=== PATIENT | female | born 1960 | race Caucasian/White ===

== ENCOUNTER 2021-01-22 22:22 | Emergency (ER) | payer BC ==
[2021-01-22] MEDS ORDERED: Ondansetron 4 MG Tab.DIS PO ONE (22:23)
[2021-01-22] MEDS ORDERED: Acetaminophen/HYDROcodone 325-5 MG Tab PO ONE (22:23)
[2021-01-22] MEDS ORDERED: Lactated Ringers 1,000 ML IV ONE (22:40)
[2021-01-22] MEDS ORDERED: HYDROmorphone 2 MG/ML SDV IVPUSH ONE (22:40)
[2021-01-22] MEDS ORDERED: Ondansetron 4 MG/2 ML SDV IVPUSH ONE (22:41)
--- NOTE | 2021-01-22 22:47 | EDM.PDOC ---
ED HPI GENERAL MEDICAL PROBLEM - General Chief Complaint: Abdominal Pain Stated Complaint: STOMACH PAIN Time Seen by Provider: 01/22/21 22:35 Source of Information: Reports: Patient, Old Records History Limitations: Reports: No Limitations - History of Present Illness INITIAL COMMENTS - FREE TEXT/NARRATIVE: 60 yo female presents with mainly RUQ abdominal pain. She last ate a summer sausage sandwich and potato salad at lunch time. She noticed anorexia at 4 pm and then a pressure under her ribs bilaterally, L > R starting at 7 pm. Has since then had nausea and vomiting. No hematemesis. No fever. No pHx of any abdominal surgeries. Onset: Today, Gradual Onset Date: 01/22/21 Duration: Hour(s):, Getting Worse Location: Reports: Abdomen Quality: Reports: Pressure Severity: Moderate Improves with: Reports: None Worsens with: Reports: Other (unsure) Context: Reports: Other (See HPI) Associated Symptoms: Reports: Nausea/Vomiting. 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: Other (see below) (none) Upper abdominal radiating across into flank region Pain Score (Numeric/FACES): 9 - Related Data Allergies Allergy/AdvReac Type Severity Reaction Status Date / Time No Known Allergies Allergy Verified 01/22/21 22:45 Home Meds: Home Meds Hydrocodone/Acetaminophen [Hydrocodon-Acetaminophen 5-325] 1 - 2 each PO QID PRN #16 tablet 01/22/21 [Rx] cephALEXin [Cephalexin] 500 mg PO QID #20 tablet 01/22/21 [Rx] ED ROS GENERAL - Review of Systems Review Of Systems: See Below Constitutional: Reports: No Symptoms HEENT: Reports: No Symptoms Respiratory: Reports: No Symptoms Cardiovascular: Reports: No Symptoms GI/Abdominal: Reports: Abdominal Pain, Anorexia, Nausea, Vomiting. Denies: Black Stool, Bloody Stool, Constipation, Diarrhea, Hematemesis, Hematochezia, Melena : Reports: No Symptoms Musculoskeletal: Reports: No Symptoms Skin: Reports: No Symptoms Neurological: Reports: No Symptoms ED EXAM, GI/ABD - Physical Exam Exam: See Below Exam Limited By: No Limitations General Appearance: Alert, WD/WN, No Apparent Distress Eyes: Bilateral: Normal Appearance Ears: Normal External Exam, Normal Canal, Hearing Grossly Normal Nose: Normal Inspection, No Blood Throat/Mouth: Normal Inspection, Normal Lips, Normal Oropharynx, Normal Voice, No Airway Compromise Head: Atraumatic, Normocephalic Neck: Normal Inspection Respiratory/Chest: No Respiratory Distress, Lungs Clear, Normal Breath Sounds, No Accessory Muscle Use Cardiovascular: Regular Rate, Rhythm, No Edema GI/Abdominal Exam: Normal Bowel Sounds, Soft, No Distention, Tender (mild increase in tenderness with palpation to the RUQ). No: Distended Back Exam: No: CVA Tenderness (R), CVA Tenderness (L) Extremities: Normal Inspection, Normal Range of Motion, Non-Tender, No Pedal Edema Neurological: Alert, Oriented, CN II-XII Intact, Normal Cognition, No Motor/Sensory Deficits Psychiatric: Normal Affect, Normal Mood Skin Exam: Warm, Dry, Intact, Normal Color, No Rash Course - Vital Signs Last Recorded V/S: Last Vital Signs Temp 36.6 C 01/22/21 22:40 Pulse 70 01/22/21 22:40 Resp 20 01/22/21 22:40 BP 144/83 H 01/22/21 22:40 Pulse Ox 100 01/22/21 22:40 - Orders/Labs/Meds Orders: Active Orders 24 hr Category Date Time Status CULTURE URINE [RM] Stat Lab 01/22/21 23:24 Ordered Lactated Ringers [Ringers, Lactated] 1,000 ml Med 01/22/21 22:40 Active IV BOLUS cefTRIAXone [Rocephin] 1 gm Med 01/22/21 23:32 Ordered Sodium Chloride 0.9% [Normal Saline] 50 ml IV ONETIME Medication Orders Lactated Ringer's (Ringers, Lactated) 1,000 mls @ 1,000 mls/hr IV BOLUS ONE Stop: 01/22/21 23:39 Labs: Laboratory Tests 01/22/21 01/22/21 01/22/21 Range/Units 22:45 22:50 22:50 WBC 11.6 H (3.0-10.3) x10-3/uL RBC 4.93 (3.60-5.20) x10(6)uL Hgb 10.2 L (11.4-15.5) g/dL Hct 33.3 L (34.2-48.2) % MCV 67.5 L (76.7-100.5) fL MCH 20.7 L (23.9-33.9) pg MCHC 30.6 L (31.9-34.8) g/dL RDW 17.5 H (12.3-16.5) % Plt Count 271 (151-488) x10(3)uL Sodium 138 (135-145) mmol/L Potassium 3.9 (3.5-5.3) mmol/L Chloride 103 (100-110) mmol/L Carbon Dioxide 23 (21-32) mmol/L BUN 13 (7-18) mg/dL Creatinine 1.1 H (0.55-1.02) mg/dL Est Cr Clr Drug Dosing 47.55 mL/min Estimated GFR (MDRD) 51 L (>60) BUN/Creatinine Ratio 11.8 (9-20) Glucose 135 H (80-116) mg/dL Calcium 8.0 L (8.6-10.2) mg/dL Total Bilirubin 0.2 (0.1-1.3) mg/dL AST 19 (5-25) IU/L ALT 35 (12-36) U/L Alkaline Phosphatase 93 (56-112) IU/L C-Reactive Protein (0.5-0.9) mg/dL Total Protein 7.8 (6.0-8.0) g/dL Albumin 3.8 (3.5-5.2) g/dL Globulin 4.0 g/dL Albumin/Globulin Ratio 1.0 Urine Color Yellow (YELLOW) Urine Appearance Cloudy (CLEAR) Urine pH 6.0 (5.0-6.5) Ur Specific [place] 1.020 (1.010-1.025) Urine Protein Trace (NEGATIVE) mg/dL Urine Glucose (UA) Normal (NORMAL) mg/dL Urine Ketones Negative (NEGATIVE) mg/dL Urine Occult Blood Moderate H (NEGATIVE) Urine Nitrite Negative (NEGATIVE) Urine Bilirubin Negative (NEGATIVE) Urine Urobilinogen Normal (NEGATIVE) mg/dL Ur Leukocyte Esterase Large H (NEGATIVE) Urine RBC 5-10 H (0-5) Urine WBC 40-50 H (0-5) Ur Squamous Epith Cells Moderate H (NS,R,O) Urine Bacteria Moderate H (NS) Urine Mucus Moderate H (NS) 01/22/21 Range/Units 22:50 WBC (3.0-10.3) x10-3/uL RBC (3.60-5.20) x10(6)uL Hgb (11.4-15.5) g/dL Hct (34.2-48.2) % MCV (76.7-100.5) fL MCH (23.9-33.9) pg MCHC (31.9-34.8) g/dL RDW (12.3-16.5) % Plt Count (151-488) x10(3)uL Sodium (135-145) mmol/L Potassium (3.5-5.3) mmol/L Chloride (100-110) mmol/L Carbon Dioxide (21-32) mmol/L BUN (7-18) mg/dL Creatinine (0.55-1.02) mg/dL Est Cr Clr Drug Dosing mL/min Estimated GFR (MDRD) (>60) BUN/Creatinine Ratio (9-20) Glucose (80-116) mg/dL Calcium (8.6-10.2) mg/dL Total Bilirubin (0.1-1.3) mg/dL AST (5-25) IU/L ALT (12-36) U/L Alkaline Phosphatase (56-112) IU/L C-Reactive Protein 2.6 H* (0.5-0.9) mg/dL Total Protein (6.0-8.0) g/dL Albumin (3.5-5.2) g/dL Globulin g/dL Albumin/Globulin Ratio Urine Color (YELLOW) Urine Appearance (CLEAR) Urine pH (5.0-6.5) Ur Specific [place] (1.010-1.025) Urine Protein (NEGATIVE) mg/dL Urine Glucose (UA) (NORMAL) mg/dL Urine Ketones (NEGATIVE) mg/dL Urine Occult Blood (NEGATIVE) Urine Nitrite (NEGATIVE) Urine Bilirubin (NEGATIVE) Urine Urobilinogen (NEGATIVE) mg/dL Ur Leukocyte Esterase (NEGATIVE) Urine RBC (0-5) Urine WBC (0-5) Ur Squamous Epith Cells (NS,R,O) Urine Bacteria (NS) Urine Mucus (NS) Meds: Medications Generic Name Dose Route Start Last Admin Trade Name Freq PRN Reason Stop Dose Admin Lactated Ringer's 1,000 mls @ 1,000 mls/hr 01/22/21 22:40 Ringers, Lactated IV 01/22/21 23:39 BOLUS ONE Discontinued Medications Generic Name Dose Route Start Last Admin Trade Name Freq PRN Reason Stop Dose Admin Hydromorphone HCl 0.5 mg 01/22/21 22:40 Hydromorphone 2 Mg/Ml Sdv IVPUSH 01/22/21 22:41 ONETIME ONE Ondansetron HCl 4 mg 01/22/21 22:41 Ondansetron 4 Mg/2 Ml Sdv IVPUSH 01/22/21 22:42 ONETIME ONE Departure - Departure Time of Disposition: 23:55 Disposition: Home, Self-Care 01 Condition: Fair Clinical Impression: Microcytic anemia, RUQ abdominal pain UTI (urinary tract infection) Qualifiers: Urinary tract infection type: site unspecified Hematuria presence: without hematuria Qualified Code(s): N39.0 - Urinary tract infection, site not specified - Discharge Information *PRESCRIPTION DRUG MONITORING PROGRAM REVIEWED*: Not Applicable *COPY OF PRESCRIPTION DRUG MONITORING REPORT IN PATIENT MERT: Not Applicable Prescriptions: cephALEXin [Cephalexin] 500 mg PO QID #20 tablet Hydrocodone/Acetaminophen [Hydrocodon-Acetaminophen 5-325] 1 - 2 each PO QID PRN #16 tablet PRN Reason: Pain Forms: ED Department Discharge Additional Instructions: Take the cephalexin every 8 hrs starting at bedtime tomorrow night. Use Zofran every 6-8 hrs as needed for nausea control. Take [place] 1-2 every 6 hrs as needed for pain relief. Your labs today suggest a urinary tract infection. A culture was set up that will be available in about 2-3 days. F/U on Fri or morning to your clinic for recheck. If you get a lot worse in the interim return here. Your labs today also suggest you may have a mild case of iron deficiency anemia. Your provider may want to put you on iron and possibly test your stools to make sure you aren't losing blood that way. Limit your diet to clear liquids until you are feeling better. Sepsis Event Note (ED) - Focused Exam Vital Signs: Vital Signs Temp Pulse Resp BP Pulse Ox 01/22/21 22:40 36.6 C 70 20 144/83 H 100 - My Orders Last 24 Hours: My Active Orders 01/22/21 22:40 Lactated Ringers [Ringers, Lactated] 1,000 ml IV BOLUS 01/22/21 23:24 CULTURE URINE [RM] Stat 01/22/21 23:32 cefTRIAXone [Rocephin] 1 gm Sodium Chloride 0.9% [Normal Saline] 50 ml IV ONETIME - Assessment/Plan Last 24 Hours: My Active Orders 01/22/21 22:40 Lactated Ringers [Ringers, Lactated] 1,000 ml IV BOLUS 01/22/21 23:24 CULTURE URINE [RM] Stat 01/22/21 23:32 cefTRIAXone [Rocephin] 1 gm Sodium Chloride 0.9% [Normal Saline] 50 ml IV ONETIME
[2021-01-22] MEDS ORDERED: cefTRIAXone 1 GM in Sodium Chloride 0.9% 50 ML IV ONE (23:32)
[2021-01-22] MEDS ORDERED: cefTRIAXone 1 GM Vial ONE (23:43)
[2021-01-23] MEDS ORDERED: cefTRIAXone 1 GM Vial IVPUSH ONE
== END 2021-01-23 00:31 | disposition home or self-care (01) ==
LOC: FB.ED 22:22
DX: N39.0 Urinary tract infection, site not specified (principal); D50.9 Iron deficiency anemia, unspecified
CPT/HCPCS: 36415; 80053; 81001; 85027; 86140; 87086; 87088; 96374; 96375; 99284-25; A9270-GY; J0696; J1170; J2405; J7120

== ENCOUNTER 2024-05-29 05:22 | Emergency (ER) | payer BC ==
[2024-05-29] MEDS ORDERED: Sodium Chloride 0.9% 10 ML Syringe FLUSH PRN (05:41)
[2024-05-29] MEDS: Sodium Chloride 0.9% 1,000 ML IV SCH (05:59)
[2024-05-29] MEDS: Ondansetron 4 MG/2 ML SDV IVPUSH ONE (06:00)
[2024-05-29] MEDS: Ketorolac 30 MG/ML SDV IVPUSH ONE (06:06)
[2024-05-29] MEDS: Morphine 4 MG/ML VIAL IVPUSH ONE (06:08)
[2024-05-29 06:11] LABS: HEMATOCRIT 38.8 % (34.2-48.2); HEMOGLOBIN 12.4 g/dL (11.4-15.5); MEAN CORPUSCULAR HEMOGLOBIN 24.5 pg (23.9-33.9); MEAN CORPUSCULAR HGB CONC 32.1 g/dL (31.9-34.8); MEAN CORPUSCULAR VOLUME 76.5 fL (76.7-100.5); MEAN PLATELET VOLUME 7.8 fL (7.1-12.4); PLATELET COUNT,PLT 217 x10(3)uL (151-488); RED BLOOD CELL COUNT 5.07 x10(6)uL (3.60-5.20); RED CELL DISTRIBUTION WIDTH 18.5 % (12.3-16.5); WHITE BLOOD CELL COUNT,WBC 9.4 x10-3/uL (3.0-10.3)
[2024-05-29 06:17] LABS: BAND PERCENT MAN 2 % (0-6); LYMPHOCYTES PERCENT MAN 13 % (13-37); MONOCYTES PERCENT MAN 4 % (4-12); SEG NEUTROPHILS PERCENT MAN 81 % (46-82)
[2024-05-29 06:19] LABS: BLOOD UREA NITROGEN,BUN 8 mg/dL (7-18); CALCIUM 8.7 mg/dL (8.6-10.2); CARBON DIOXIDE,CO2 26 mmol/L (21-32); CHLORIDE,CL 103 mmol/L (100-110); EST CRCL DRUG DOSING (CG) 50.37 mL/min; ESTIMATED GFR 64 mL/min (>60); GLUCOSE RANDOM 170 mg/dL (80-116); POTASSIUM,K 3.9 mmol/L (3.5-5.3); SODIUM,NA 140 mmol/L (135-145)
[2024-05-29 06:24] LABS: ALANINE AMINOTRANSFERASE,ALT 33 U/L (12-36); ALBUMIN 3.6 g/dL (3.2-4.6); ALKALINE PHOSPHATASE 90 IU/L (56-112); ASPARTATE AMNIOTRANSFERASE,AST 20 IU/L (5-25); BILIRUBIN TOTAL 0.3 mg/dL (0.1-1.3); PROTEIN TOTAL,TP 7.1 g/dL (6.0-8.0)
[2024-05-29] MEDS: Prochlorperazine 10 MG/2 ML SDV IVPUSH ONE (07:18)
[2024-05-29] MEDS: Iopamidol 755 Mg/ML 100 ML Bottle IV SCH (07:20)
== END 2024-05-29 08:20 | disposition home or self-care (01) ==
LOC: FB.ED 05:22
DX: K80.20 Calculus of gallbladder without cholecystitis without obstruction (principal); R91.1 Solitary pulmonary nodule
CPT/HCPCS: 36415; 74177; 80053; 83690; 85025; 96361; 96374; 96375; 99284; J0780; J1885; J2270; J2405; J7030; Q9967